=== PATIENT | male | born 1950 | race Asian ===

== ENCOUNTER 2019-07-28 07:41 | Emergency (ER) | payer OTHER ==
[~2019-07-28] VITALS: Ht 170.2 cm; Wt 74.8 kg
[2019-07-28 07:50] VITALS: BP_SYST 143
--- NOTE | 2019-07-28 07:50 | NUR ---
Patient to ER bed 5 to gown for evaluation. Side rails up.
--- NOTE | 2019-07-28 07:55 | NUR ---
Patient is awake, alert, and oriented x4. Patient arrived from home complaining of rash to his left shoulder and neck. Patient reports it is itchy and denies any pain at this time. Patient states he noticed the rash 2-3 days ago.
--- NOTE | 2019-07-28 08:05 | NUR ---
ER Dr. Zhao at bedside examining patient.
[2019-07-28 08:11] VITALS: BP_SYST 143
--- NOTE | 2019-07-28 08:11 | NUR ---
Patient given written and verbal discharge instructions and verbalizes understanding. ER MD discussed with patient the results and treatment provided. Patient in stable condition. ID arm band removed. Rx of zyrtec and triamcinolone given. Patient educated on pain management and to follow up with PMD. Pain Scale 0/10. Opportunity for questions provided and answered. Medication side effect fact sheet provided.
== END 2019-07-28 08:11 | disposition home or self-care (01) ==
LOC: EDSEX 07:41 → SED 07:41
DX: L30.9 Dermatitis, unspecified (principal)
CPT/HCPCS: 99283